=== PATIENT | male | born 1975 | race Two or more races ===

== ENCOUNTER 2024-01-14 17:09 | Emergency (ER) | payer OTHER ==
[~2024-01-14] VITALS: Ht 177.8 cm; Wt 94.9 kg
[2024-01-14] MEDS ORDERED: VALA1TAB PO (18:34)
[2024-01-14 20:00] VITALS: BP 162/102; PULSE 91; RESP 18; TEMP 98.5; O2SAT 97
== END 2024-01-14 20:07 | disposition home or self-care (01) ==
LOC: ER 17:09 → EEVIPCON 17:09 → ER 20:07
DX: B02.9 Zoster without complications (principal)